=== PATIENT | female | born 2005 | race Two or more races ===

== ENCOUNTER 2024-08-07 12:02 | Day surgery (SDC) | payer OTHER ==
[2024-08-07] MEDS ORDERED: hydrALAZINE 20 MG/ML VIAL SLOW IVP PRN (13:02)
[2024-08-07 13:12] VITALS: BMI 50.3
[2024-08-07 14:25] LABS: Creatinine, Urine 220.66 mg/dL (47-110)
[2024-08-07 14:35] LABS: #Basophils 0.03 10x3/uL (0.0-0.2); #Eosinphils 0.02 10x3/uL (0.0-0.5); #Monocytes 0.79 10x3/uL (0.0-1.1); #Neutrophils 7.28 10x3/uL (1.5-8.4); %Basophils 0.3 % (0.0-2.0); %Eosinophils 0.2 % (0.0-6.0); %Lymphocytes 20.8 % (18.0-47.0); %Monocytes 7.7 % (0.0-10.0); %Neutrophils 70.7 % (40.0-75.0); Hemoglobin 12.3 g/dL (12.0-15.5); Mean Corpuscular HGB CONC 33.2 g/dL (32.0-36.0); Mean Corpuscular Hemoglobin 26.8 pg (27.0-33.0); Mean Corpuscular Volume 80.6 fL (81.6-98.3); Mean Platelet Volume 9.4 fL (7.4-10.4); Platelet Count 285 10x3/uL (150-450); RBC Distribution Width 13.7 % (11.5-14.5); Red Blood Cell (RBC) Count 4.59 10x6/uL (3.90-5.03); White Blood Cell (WBC) Count 10.3 10x3/uL (3.5-10.5)
[2024-08-07 14:47] LABS: ALT (SGPT) 10 U/L (8-55); AST (SGOT) 14 U/L (5-30); Albumin 2.9 g/dL (3.5-5.0); Alkaline Phosphatase 173 U/L (40-100); Anion Gap 13 mmol/L (10-20); BUN (Urea Nitrogen) 9 mg/dL (8.4-21.0); Bilirubin, Total 0.3 mg/dL (0.2-1.2); Calc. Creatinine Clearance 277 mL/min (70-130); Calcium 9.7 mg/dL (7.8-10.44); Carbon Dioxide 21 mmol/L (22-29); Chloride 107 mmol/L (98-107); Estimated GFR 118; Globulin 3.6 g/dL (2.4-3.5); Glucose 73 mg/dL (70-105); Potassium 4.5 mmol/L (3.5-5.1); Protein, Total 6.5 g/dL (6.0-8.3); Sodium 136 mmol/L (136-145)
== END 2024-08-07 16:40 | disposition home or self-care (01) ==
LOC: CSHLD/OP 12:02 → MERGE 12:02 → CSHLD/OP 16:40
PROVIDERS: ATTEND Obstetrics & Gynecology
DX: O11.3 Pre-existing hypertension with pre-eclampsia, third trimester (principal); O99.213 Obesity complicating pregnancy, third trimester; O99.333 Smoking (tobacco) complicating pregnancy, third trimester; Z87.891 Personal history of nicotine dependence; O99.323 Drug use complicating pregnancy, third trimester; F12.10 Cannabis abuse, uncomplicated; Z79.82 Long term (current) use of aspirin; Z79.899 Other long term (current) drug therapy; O00.01 Abdominal pregnancy with intrauterine pregnancy; Z3A.36 36 weeks gestation of pregnancy
CPT/HCPCS: 36415; 76819; 80053; 82570; 84156; 85025; 99283

== ENCOUNTER 2024-08-09 19:30 | Inpatient (IN) | payer OTHER ==
[2024-08-09 21:44] VITALS: BMI 50.3
[2024-08-09] MEDS ORDERED: Acetaminophen 500 MG TAB PO PRN (22:20)
[2024-08-09] MEDS ORDERED: Docusate 100 MG CAP PO PRN (22:20)
[2024-08-09] MEDS ORDERED: Carboprost 250 MCG/ML AMP IM PRN (22:20)
[2024-08-09] MEDS ORDERED: Promethazine HCl 25 MG/ML VIAL IM PRN (22:20)
[2024-08-09] MEDS ORDERED: Tranexamic Acid 1,000 MG/10 ML VIAL IVP PRN (22:20)
[2024-08-09] MEDS ORDERED: Diphenoxylate HCl/Atropine Tablet PO PRN (22:20)
[2024-08-09] MEDS ORDERED: Lidocaine 1% (PF) 30 ML VIAL SC PRN (22:20)
[2024-08-09] MEDS ORDERED: hydrALAZINE 20 MG/ML VIAL SLOW IVP PRN (22:20)
[2024-08-09] MEDS ORDERED: Ibuprofen 800 MG TAB PO PRN (22:20)
[2024-08-09] MEDS ORDERED: Misoprostol 200 MCG TAB PR PRN (22:20)
[2024-08-09] MEDS ORDERED: Oxytocin 30 units/NS 500 ML 500 ML IV SCH (22:30)
[2024-08-09 22:39] LABS: Hematocrit 35.1 % (34.9-44.5); Hemoglobin 11.8 g/dL (12.0-15.5); Mean Corpuscular HGB CONC 33.6 g/dL (32.0-36.0); Mean Corpuscular Hemoglobin 26.8 pg (27.0-33.0); Mean Corpuscular Volume 79.8 fL (81.6-98.3); Mean Platelet Volume 10.2 fL (7.4-10.4); Platelet Count 298 10x3/uL (150-450); RBC Distribution Width 13.8 % (11.5-14.5); White Blood Cell (WBC) Count 11.3 10x3/uL (3.5-10.5)
[2024-08-09] MEDS: Misoprostol 100 MCG TAB VAG SCH (22:40)
[2024-08-09] MEDS: Penicillin G Potassium 5 MILL.UNITS in Sodium Chloride 0.9% 100 ML IVPB SCH (22:46)
[2024-08-09 23:04] LABS: Syphilis Antibody Nonreactive (Nonreactive); Syphilis Antibody Index 0.03 S/CO (<1.00 Non-Reactive)
[2024-08-09 23:05] LABS: HBsAg Index 0.21 S/CO (0-0.99); Hep B Surf Ag - L&D Non-Reactive S/CO (NonReactive)
[2024-08-10] MEDS: Labetalol HCl 100 MG TAB PO SCH ×2 (00:55→11:11)
[2024-08-10] MEDS: Penicillin G 2.5 MILL.units 2.5 MILL.UNITS in Premix 1 BAG IVPB SCH (02:38)
[2024-08-10] MEDS: Misoprostol 100 MCG TAB VAG SCH (02:42)
[2024-08-10] MEDS: fentaNYL 50 mcg/mL 1 mL Vial SLOW IVP PRN (05:23)
[2024-08-10] MEDS: Ondansetron PF 4 MG/2 ML Vial IVP PRN (07:21)
[2024-08-10] MEDS: Lactated Ringer's 1,000 ML IV SCH (08:39)
[2024-08-10] MEDS: fentaNYL/Ropivacaine Epidural 100 ML ONE (08:46)
[2024-08-10] MEDS ORDERED: Moisturizing Cream (Eucerin) 113 GM JAR TOP PRN (09:18)
[2024-08-10] MEDS ORDERED: Acetaminophen 325 MG TAB PO PRN (09:18)
[2024-08-10] MEDS ORDERED: Naloxone HCl 0.4 mg/ml Vial IVP PRN ×2 (09:18)
[2024-08-10] MEDS ORDERED: diphenhydrAMINE 50 MG/ML VIAL IVP PRN (09:18)
[2024-08-10] MEDS ORDERED: ePHEDrine Sulfate 50 MG/10 ML VIAL SLOW IVP PRN (09:18)
[2024-08-10] MEDS ORDERED: Lactated Ringer's 500 ML IV PRN (09:18)
[2024-08-10] MEDS ORDERED: Promethazine HCl 25 MG/ML VIAL IM PRN (09:18)
[2024-08-10] MEDS ORDERED: Ondansetron PF 4 MG/2 ML Vial IVP PRN (09:18)
[2024-08-10] MEDS ORDERED: Communication Order-Pharmacy FS SCH (09:30)
[2024-08-10] MEDS: fentaNYL 2 mcg/Ropivacaine 0.2% Epidural 100 ML CADD EPIDURAL SCH (18:38)
[2024-08-11] MEDS: Oxytocin 30 units/NS 500 ML 500 ML IV SCH (03:14)
[2024-08-11] MEDS ORDERED: Bicitra 30 ML UDCUP PO PRN (08:09)
[2024-08-11] MEDS ORDERED: CEFAZOLIN 2 GM in Sodium Chloride 0.9% 100 ML IVPB SCH (08:15)
[2024-08-11] MEDS: Famotidine/PF 20 mg/2ml Vial SLOW IVP PRN (08:28)
[2024-08-11] MEDS: Azithromycin 500 MG in Sodium Chloride 0.9% 250 ML 250 ML IVPB SCH (08:28)
[2024-08-11] MEDS ORDERED: fentaNYL 50 mcg/mL 1 mL Vial SLOW IVP PRN ×2 (09:18→10:26)
[2024-08-11] MEDS ORDERED: Boostrix 0.5 ML (Tdap) VIAL (>/=7 yrs of age) IM ONE (10:22)
[2024-08-11] MEDS ORDERED: Simethicone Chewable 80 MG TAB PO PRN ×2 (10:22→13:50)
[2024-08-11] MEDS ORDERED: hydrALAZINE 20 MG/ML VIAL SLOW IVP PRN ×2 (10:22→13:50)
[2024-08-11] MEDS ORDERED: Naloxone HCl 0.4 mg/ml Vial IVP PRN ×2 (10:26)
[2024-08-11] MEDS ORDERED: diphenhydrAMINE 50 MG/ML VIAL IVP PRN (10:26)
[2024-08-11] MEDS ORDERED: Naloxone HCl 0.4 mg/ml Vial IV PRN (10:26)
[2024-08-11] MEDS ORDERED: Promethazine HCl 25 MG/ML VIAL IM PRN (10:26)
[2024-08-11] MEDS ORDERED: Meperidine HCl/PF 25 MG (1 mL) VIAL SLOW IVP PRN (10:26)
[2024-08-11] MEDS ORDERED: Moisturizing Cream (Eucerin) 113 GM JAR TOP PRN (10:26)
[2024-08-11] MEDS ORDERED: Ondansetron PF 4 MG/2 ML Vial IVP PRN ×2 (10:26)
[2024-08-11] MEDS ORDERED: Ketorolac Tromethamine 30 MG (1 mL) VIAL IVP PRN (10:26)
[2024-08-11] MEDS ORDERED: [UNRECOGNIZED DRUG - REMARK] FS SCH (10:30)
[2024-08-11] MEDS ORDERED: Bupivacaine 0.25% HCL 30 ML VIAL ONE (13:00)
[2024-08-11] MEDS ORDERED: Bisacodyl 10 MG SUPP PR PRN (13:50)
[2024-08-11] MEDS ORDERED: Acetaminophen 325 MG TAB PO PRN (13:50)
[2024-08-11] MEDS: Dexamethasone 10 MG/ML VIAL ONE (13:55)
[2024-08-11] MEDS: ePHEDrine Sulfate 50 MG/10 ML VIAL ONE (13:55)
[2024-08-11] MEDS: PHENYLEPHRINE-NS 100 MCG/ML 10 ML SYRINGE ONE (13:56)
[2024-08-11] MEDS: Erythromycin Base 0.5% Oint 1 GM TUBE ONE (13:56)
[2024-08-11] MEDS: Oxytocin 10 UNITS/ML VIAL ONE (13:56)
[2024-08-11] MEDS: Ketorolac Tromethamine 30 MG (1 mL) VIAL ONE (13:56)
[2024-08-11] MEDS: Chloroprocaine 3% PF 20 ML VIAL ONE (13:56)
[2024-08-11] MEDS: Ondansetron PF 4 MG/2 ML Vial ONE (13:56)
[2024-08-11] MEDS: Morphine PF 10 MG/10 ML VIAL ONE (13:56)
[2024-08-11] MEDS: Phytonadione Neonatal 1 MG/0.5 ML AMP ONE (13:56)
[2024-08-11] MEDS: Dexmedetomidine 200 MCG/2 ML VIAL ONE (13:57)
[2024-08-11] MEDS: Midazolam HCl 2 mg/2 ml Vial ONE ×2 (13:57)
[2024-08-11] MEDS: Lidocaine 2% PF 100 mg/5 ml Syringe ONE (13:57)
[2024-08-11] MEDS: fentaNYL 50 mcg/mL 1 mL Vial ONE ×2 (13:57)
[2024-08-11] MEDS: Boostrix 0.5 ML (Tdap) VIAL (>/=7 yrs of age) IM ONE (13:59)
[2024-08-11] MEDS: Ketorolac Tromethamine 30 MG (1 mL) VIAL IVP SCH ×2 (14:46→15:02)
[2024-08-11] MEDS: Ibuprofen 800 MG TAB PO SCH ×2 (19:16→21:52)
[2024-08-11] MEDS ORDERED: Enoxaparin 40 MG (0.4 mL) SYRINGE SC SCH (21:00)
[2024-08-11] MEDS: Docusate 100 MG CAP PO SCH (21:52)
[2024-08-11] MEDS ORDERED: Diphenoxylate HCl/Atropine Tablet PO PRN (22:30)
[2024-08-12 04:55] LABS: Hematocrit 31.7 % (34.9-44.5); Hemoglobin 10.6 g/dL (12.0-15.5); Mean Corpuscular HGB CONC 33.4 g/dL (32.0-36.0); Mean Corpuscular Volume 80.7 fL (81.6-98.3); Mean Platelet Volume 9.4 fL (7.4-10.4); Platelet Count 269 10x3/uL (150-450); RBC Distribution Width 14.1 % (11.5-14.5); Red Blood Cell (RBC) Count 3.93 10x6/uL (3.90-5.03); White Blood Cell (WBC) Count 14.9 10x3/uL (3.5-10.5)
[2024-08-12] MEDS ORDERED: Ferrous Sulfate 325 MG TAB PO SCH (08:00)
[2024-08-12] MEDS: Polyethylene Glycol 3350 17 GM Packet PO SCH (09:35)
[2024-08-12] MEDS: Prenatal Vitamin 1 TAB PO SCH (09:36)
[2024-08-12] MEDS: Enoxaparin 40 MG (0.4 mL) SYRINGE SC SCH (09:36)
[2024-08-12] MEDS: HYDROcodone/Acetaminophen 5/325 mg Tablet PO PRN ×2 (10:28→14:36)
[2024-08-12] MEDS ORDERED: Ibuprofen 800 MG TAB PO SCH (14:00)
[2024-08-13 12:12] VITALS: BP 129/62; TEMP 98.1
== END 2024-08-13 17:05 | disposition home or self-care (01) | DRG 788 ==
LOC: CSHLD 20:17 → CSHPP 08-11 12:29
PROVIDERS: ADMIT Obstetrics & Gynecology; ATTEND Obstetrics & Gynecology
PROC: 10D00Z1 Extraction of Products of Conception, Low, Open Approach (ICD-10-PCS; principal; 2024-08-11)
DX: O16.4 Unspecified maternal hypertension, complicating childbirth (principal); O99.824 Streptococcus B carrier state complicating childbirth; O99.214 Obesity complicating childbirth; O36.63X0 Maternal care for excessive fetal growth, third trimester, not applicable or unspecified; Z3A.37 37 weeks gestation of pregnancy; Z79.82 Long term (current) use of aspirin; Z79.899 Other long term (current) drug therapy; E66.813 Obesity, class 3; Z37.0 Single live birth
CPT/HCPCS: 36415; 51702; 85027; 86780; 86850; 86900; 86901; 87340; J0456; J0665; J1100; J1650; J1885; J2250; J2274; J2401; J2405; J2540; J2590; J3010; J3490; J7050; J7120

== ENCOUNTER 2025-10-18 04:31 | Inpatient (IN) | payer OTHER, SELFPAY ==
[2025-10-18 05:10] LABS: Glucose, Urine (Dipstick) Normal (Negative); Leukocyte 25 (Negative); Protein, Urine (Dipstick) 30 mg/dl (Neg-Trace); Specific Gravity, Urine 1.020 (1.005-1.030)
[2025-10-18 05:12] LABS: Pregnancy Test - Urine (BHCG) Negative (Negative); Pregu Control Background? CLEAR/WHITE (CLR/WHITE); Pregu Control Bar Appear? YES (CONTROL BAR)
[2025-10-18 05:16] LABS: Bacteria/HPF None Seen HPF (None Seen); CAUTI Indications for Culture Dysuria,urgency,freq; RBC/HPF None Seen HPF (0-3); WBC/HPF 0-3 HPF (0-3)
[2025-10-18 05:17] LABS: Urine Culture Reflex No No
[2025-10-18 05:22] LABS: #Basophils 0.04 10x3/uL (0.0-0.2); #Eosinophils 0.17 10x3/uL (0.0-0.5); #Monocytes 0.53 10x3/uL (0.0-1.1); #Neutrophils 4.54 10x3/uL (1.5-8.4); %Basophils 0.5 % (0.0-2.0); %Eosinophils 2.0 % (0.0-6.0); %Lymphocytes 38.3 % (18.0-47.0); %Monocytes 6.2 % (0.0-10.0); %Neutrophils 52.8 % (40.0-75.0); Hematocrit 39.9 % (34.9-44.5); Hemoglobin 13.3 g/dL (12.0-15.5); Mean Corpuscular Hemoglobin 25.6 pg (27.0-33.0); Mean Corpuscular Volume 76.7 fL (81.6-98.3); Platelet Count 353 10x3/uL (150-450); Red Blood Cell (RBC) Count 5.20 10x6/uL (3.90-5.03); White Blood Cell (WBC) Count 8.59 10x3/uL (3.5-10.5)
[2025-10-18] MEDS ORDERED: Ketorolac Tromethamine 30 MG (1 mL) VIAL ONE (05:23)
[2025-10-18] MEDS ORDERED: cefTRIAXone (ROCEPHIN) 1 GM VIAL ONE (05:33)
[2025-10-18 05:44] LABS: Troponin I 0.909 ng/mL (< 0.028)
[2025-10-18] MEDS ORDERED: Enoxaparin 100 MG (1 mL) SYRINGE ONE (06:10)
[2025-10-18] MEDS ORDERED: Nitroglycerin 2% Ointment 1 INCH/1 GM Packet ONE (06:11)
[2025-10-18] MEDS ORDERED: Aspirin Chewable 81 MG TAB ONE (06:11)
[2025-10-18] MEDS ORDERED: Metoprolol Tartrate 5 MG (5 mL) VIAL ONE (06:12)
[2025-10-18] MEDS ORDERED: Calcium Carbonate 500 MG ChewTAB PO PRN (06:24)
[2025-10-18] MEDS ORDERED: Senokot S 8.6-50 MG TAB PO PRN (06:24)
[2025-10-18] MEDS ORDERED: Nitroglycerin 0.4 MG TAB (25 Tab Bottle) SL PRN (06:27)
[2025-10-18 08:05] VITALS: BMI 45.1
[2025-10-18 08:13] LABS: Troponin I 1.377 ng/mL (< 0.028)
[2025-10-18 08:25] LABS: Cocaine Metabolite Screen Negative (Negative); THC/Cannabinoid Screen PRELIM POSITIVE (Negative); Tricyclic Screen Negative (Negative)
[2025-10-18 08:33] LABS: ALT (SGPT) 19 U/L (Less than 34); AST (SGOT) 20 U/L (11-34); Albumin 3.8 g/dL (3.1-4.5); Alkaline Phosphatase 161 U/L (40-100); Anion Gap 14 mmol/L (10-20); BUN (Urea Nitrogen) 11 mg/dL (7.0-18.7); Bilirubin, Total 0.2 mg/dL (0.3-1.2); CK (CPK) 104 U/L (29-168); Calc. Creatinine Clearance 220 mL/min (70-130); Calcium 9.2 mg/dL (7.8-10.44); Carbon Dioxide 18 mmol/L (22-29); Cardiac Risk 4.8 (Less than 4.5); Chloride 108 mmol/L (98-107); Cholesterol 160 mg/dl (< 200 Desired); Globulin 3.1 g/dL (2.4-3.5); Glucose 105 mg/dL (70-105); HDL Cholesterol 33 mg/dL (>60 Neg Risk); LDL Cholesterol, Calculated 98 mg/dL; Potassium 4.4 mmol/L (3.5-5.1); Sodium 136 mmol/L (136-145); Triglycerides 147 mg/dL (Less than 150)
[2025-10-18 09:05] LABS: Magnesium 2.1 mg/dL (1.7-2.2)
[2025-10-18 09:12] LABS: D-Dimer Test 0.51 mcg/mL (0.19-0.50); INR-International Normal Ratio 1.0; PTT 29.5 sec (22.0-33.0); Prothrombin Time 10.7 sec (9.5-12.1)
[2025-10-18] MEDS ORDERED: Iopamidol 370 76% 100 ML VIAL ONE (10:43)
[2025-10-18] MEDS: Famotidine/PF 20 mg/2ml Vial SLOW IVP SCH (11:18)
[2025-10-18] MEDS: Losartan 25 MG TAB PO SCH (11:19)
[2025-10-18] MEDS: Ondansetron PF 4 MG/2 ML Vial IVP PRN (12:20)
[2025-10-18] MEDS: Acetaminophen 325 MG TAB PO PRN (12:32)
[2025-10-18] MEDS ORDERED: cloNIDine 0.1 MG TAB PO PRN (12:34)
[2025-10-18 13:29] LABS: Troponin I 1.607 ng/mL (< 0.028)
[2025-10-18] MEDS: Colchicine 0.6 MG TAB PO SCH ×2 (16:10→20:21)
[2025-10-18 17:04] LABS: Troponin I 1.793 ng/mL (< 0.028)
[2025-10-18] MEDS: Isosorbide Mononitrate 30 MG ER.TAB.S PO SCH (17:16)
[2025-10-18] MEDS ORDERED: Enoxaparin 40 MG (0.4 mL) SYRINGE SC SCH (18:00)
[2025-10-18] MEDS ORDERED: Enoxaparin 100 MG (1 mL) SYRINGE SC SCH (18:00)
[2025-10-18] MEDS: Pantoprazole 40 MG DR.TAB PO SCH (20:21)
[2025-10-19 05:39] LABS: #Basophils 0.04 10x3/uL (0.0-0.2); #Eosinophils Less than 0.03 10x3/uL (0.0-0.5); #Monocytes 0.25 10x3/uL (0.0-1.1); #Neutrophils 6.39 10x3/uL (1.5-8.4); %Basophils 0.4 % (0.0-2.0); %Eosinophils 0.1 % (0.0-6.0); %Lymphocytes 24.8 % (18.0-47.0); %Monocytes 2.8 % (0.0-10.0); %Neutrophils 71.7 % (40.0-75.0); Hematocrit 37.2 % (34.9-44.5); Hemoglobin 12.1 g/dL (12.0-15.5); Mean Corpuscular Hemoglobin 25.2 pg (27.0-33.0); Mean Corpuscular Volume 77.5 fL (81.6-98.3); Platelet Count 358 10x3/uL (150-450); Red Blood Cell (RBC) Count 4.80 10x6/uL (3.90-5.03); White Blood Cell (WBC) Count 8.92 10x3/uL (3.5-10.5)
[2025-10-19 05:53] LABS: Anion Gap 14 mmol/L (10-20); BUN (Urea Nitrogen) 10 mg/dL (7.0-18.7); Calc. Creatinine Clearance 255 mL/min (70-130); Calcium 9.5 mg/dL (7.8-10.44); Carbon Dioxide 19 mmol/L (22-29); Cardiac Risk 4.7 (Less than 4.5); Chloride 110 mmol/L (98-107); Cholesterol 165 mg/dl (< 200 Desired); Glucose 120 mg/dL (70-105); HDL Cholesterol 35 mg/dL (>60 Neg Risk); LDL Cholesterol, Calculated 112 mg/dL; Magnesium 2.0 mg/dL (1.7-2.2); Potassium 4.7 mmol/L (3.5-5.1); Sodium 138 mmol/L (136-145); Triglycerides 89 mg/dL (Less than 150)
[2025-10-19 05:59] LABS: Troponin I 0.735 ng/mL (< 0.028)
[2025-10-19] MEDS ORDERED: Isosorbide Mononitrate 30 MG ER.TAB.S PO SCH (09:00)
[2025-10-19] MEDS: Aspirin 81 mg Enteric Coated Tablet PO SCH (09:02)
[2025-10-19 13:11] VITALS: BP 128/71; TEMP 98
== END 2025-10-19 13:40 | disposition home or self-care (01) | DRG 281 ==
LOC: CSHERS 04:31 → CSHTELE 06:18
PROVIDERS: ADMIT Student in an Organized Health Care Education/Training Program; ATTEND Internal Medicine
DX: I21.4 Non-ST elevation (NSTEMI) myocardial infarction (principal); E87.20 Acidosis, unspecified; Z68.45 Body mass index [BMI] 70 or greater, adult; E66.01 Morbid (severe) obesity due to excess calories; F12.10 Cannabis abuse, uncomplicated; I10 Essential (primary) hypertension
CPT/HCPCS: 36415; 71275; 80048; 80053; 80061; 80306; 81001; 81025; 82550; 83036; 83735; 83880; 84484; 85025; 85379; 85610; 85730; 86140; 93005; 93010; 93306; 96365; 96372; 96375; J0696; J1308; J1650; J1885; J2405; J3360; J7030; J7509; Q9967